=== PATIENT | female | born 1985 | race Caucasian/White ===

== ENCOUNTER 2023-07-08 17:22 | Emergency (ER) | payer OTHER, SELFPAY ==
[2023-07-08 17:32] VITALS: BP 132/89
[2023-07-08 17:52] LABS: % Basophils 0.6 % (0-2); % Immature Granulocytes 0.2 % (0-0.5); % Lymphocytes 32.3 % (20.5-51.1); % Monocytes 7.5 % (1.7-9.3); % Neutrophils 53.4 % (42.2-75.2); Absolute Basophils 0.1 10^3/uL (0-0.2); Absolute Eosinophils 0.5 10^3/uL (0-0.7); Absolute Lymphocytes 2.6 10^3/uL (1.2-3.4); Absolute Monocytes 0.6 10^3/uL (0.1-0.6); Absolute Neutrophils 4.3 10^3/uL (1.4-6.5); Hematocrit 36.9 % (37.0-47.0); Hemoglobin 12.4 g/dL (12.0-16.0); Mean Corp Hgb Conc. 33.6 g/dL (33.0-37.0); Mean Corpuscular Hgb 29.5 pg (27.0-31.0); Mean Corpuscular Volume 87.6 fL (81.0-99.0); Mean Platelet Volume 9.5 fL (7.4-10.4); Nucleated Red Blood Cells % 0 %; Platelet Count 293 10^3/uL (130-400); Red Blood Cell Count 4.21 10^6/uL (4.20-5.40); Red Cell Dist. Width 12.6 % (11.5-14.5); White Blood Cell Count 8.1 10^3/uL (4.8-10.8)
[2023-07-08 18:00] VITALS: BP 127/97
[2023-07-08 18:03] VITALS: BP 136/102
[2023-07-08 18:04] LABS: ALT (SGPT) 19 U/L (0-35); AST (SGOT) 21 U/L (14-36); Albumin 4.4 g/dl (3.5-5.0); Alkaline Phosphatase 82 U/L (38-126); Blood Urea Nitrogen 15 mg/dl (7-17); Calcium 9.6 mg/dl (8.4-10.2); Carbon Dioxide 25 mmol/L (22-30); Chloride 103 mmol/L (98-107); Glucose 92 mg/dl (70-99); Sodium 137 mmol/L (135-145); Total Bilirubin 0.3 mg/dl (0.2-1.3); Total Protein 7.8 g/dl (6.3-8.2); eGFR > 60.00
[2023-07-08 18:05] LABS: Potassium 3.8 mmol/L (3.5-5.1)
[2023-07-08 18:15] LABS: Troponin I < 0.012 ng/ml
--- NOTE | 2023-07-08 18:15 | ED.GENMED ---
History of Present Illness
General
Chief Complaint: Breathing Problem
Source: patient
Exam Limitations: none
Time Seen by Provider: 07/08/23 18:04
Travel History
Have you had any contact with someone who has COVID-19?: No
Do you have any symptoms of coronavirus? Fever > 100 degrees, chills, cough, shortness of breath, sore throat, loss of taste or smell, muscle aches, or headache?: No
History of Present Illness
History of Present Illness:
This is a 37 year old female that comes in with c/o chest pain, SOB and left arm pain. States that all of a sudden she started with pain in the left shoulder that went into the upper arm and she started to cough. States that she had chest tightness
and had trouble breathing. states that she still feels like she has tightness in her throat. States that she has been on antibiotics for bacteria stomach overgrowth. States that she did get lightheaded when she stood up. Denies any fever, chills,
abd pain, nausea, vomiting, diarrhea, headache, urinary burning.
Past History
Past History
ED Past Medical History: Asthma (Exercise induced) and Other (Celiac disease, IgA deficiency, )
ED Past Surgical History: None and Other (Left retina surgery)
Social History
Tobacco: Non-smoker
Alcohol: None
Drug: None
Personal:
Living: with family
Employment: Employed
Review of Systems
Review of Systems
All Other Systems: ROS reviewed and negative except as documented in HPI and ROS
Constitutional: Reports no symptoms; Denies fever or chills
EENT: Reports other (Tightness in her throat)
Respiratory: Reports cough and trouble breathing
Cardiac: Reports chest pain
ABD/GI: Reports no symptoms; Denies abdominal pain, nausea, vomiting or diarrhea
: Reports no symptoms; Denies dysuria, frequency or urgency
Musculoskeletal: Reports no symptoms
Neurological: Reports dizzy (with standing lightheaded); Denies headache
Psychiatric: Reports no symptoms
Phy Exam
General Physical Exam
General Presentation: well appearing and no apparent distress
General age: appears stated age
General Skin: warm and dry
General Habitus: normal
General Mental: alert
General Hydration: dry mucous membranes
ENT Exam
ENT Exam: TM's normal, pharynx normal and neck supple
Eye Exam
Eye Exam: EOMI
Cardiovascular Exam
Cardiovascular Exam: no edema, no murmur, normal peripheral pulses and tachycardia
Pulmonary Exam
Pulmonary Exam: lungs clear, no respiratory distress, no rales, chest non tender, no crackles, no rhonchi, no wheezing and no cough (at this time)
Gastrointestinal Exam
Gastrointestinal Exam: normal bowel sounds, non tender, soft, no organomegaly, no pulsatile mass and non distended
Musculoskeletal Exam
Musculoskeletal Exam: full ROM, no edema and other (Tenderness to palpation left trapezius muscle into shoulder, Full ROM with normal peripheral pulses)
Skin Exam
Skin Exam: normal color, warm/dry, no rash and no petechia
Psychiatric Exam
Psychiatric Exam: normal mood/affect
Course
Orders/Labs/Results
Orders:
Orders
07/08/23 17:31
Electrocardiogram (*1) Urgent
Reason for Study: Chest Pain
EKG- Treatment ONCE
07/08/23 17:38
Complete Blood Count/With Diff Urgent
Comprehensive Metabolic Panel Urgent
HCG, Serum Qualitative Screen Urgent
Troponin I Urgent
07/08/23 18:14
Add On- LAB Urgent
Tests Added?: HCG
Ketorolac [Toradol] 30 mg IV NOW STA
07/08/23 19:02
D-Dimer Urgent
07/08/23 20:31
Troponin I Urgent
07/08/23 21:03
CR Chest - 2 Views Urgent
Comment:
Reason For Exam: Chest pain
Abnormal Lab Results
07/08/23
17:38
Hct 36.9 L %
(37.0-47.0)
07/08/23 17:38
07/08/23 17:38
Labs unremarkable. Troponin <0.012
Second Troponin <0.012, D-dimer 0.28, HCG negative.
Vital Signs
Initial and Last Documented VS:
Initial Vital Signs
Temp Pulse Resp Pulse Ox
98.1 F 108 24 100
07/08/23 17:29 07/08/23 17:29 07/08/23 17:29 07/08/23 17:29
Last Documented Vital Signs
Temp Pulse Resp BP Pulse Ox
98.1 F 88 21 115/78 97
07/08/23 17:29 07/08/23 21:15 07/08/23 21:15 07/08/23 21:00 07/08/23 21:15
MDM/Problems Addressed
Differential Diagnosis Includes:
PE, MA, PNA
MDM/Problems Addressed:
This is a 37 year old female that comes in with c/o left shoulder into chest pain. Stats that this came on suddenly. States that she started to cough with the pain and she was not sick. States that the coughing has stopped. States that she still has
tightness in her throat.
Will check labs. If D-dimer is positive will get CT of chest.
Back into see patient. patient state that she is feeling better after the medication for pain. Explained that this sounds musculoskeletal in nature. Her blood work is all normal along with her chest x-ray. Patient can take Ibuprofen 600mg every 6
hours with food for pain. Follow up with the family doctor. Return with any concerns.
Chronic conditions affecting care:
NA
Acute Exacerbation and/or Progression of Chronic Illness:
NA
*Radiology
Radiology exam reviewed: preliminary read by ED provider (Chest- Negative for active disease. )
*Pulse Oximetry
Patient hypoxic: no
*EKG
Interpreted by ED Provider?: Yes
Heart Rate: 100
Rate: tachycardiac
Rhythm: sinus
[place]: normal axis
Interval: normal interval
QRS Pattern: normal QRS
Ischemia: no ischemia (Checked by Dr. Caicedo)
*[employer] Interpretation
Rate: tachycardiac
Heart Rate: 101
Rhythm: sinus tachycardia
*Critical Care Note
Total Time (30-74mins, 75-104mins- exclusive of procedures): Not Applicable
ED Attending Note
-
Portions of this chart may have been created with voice recognition software.� Occasional wrong word or��sound alike� substitutions may have occurred due to the inherent limitations of voice recognition software.
Discharge Plan
Departure
Patient Disposition: Home (Routine Discharge)
Date of Disposition: 07/08/23
Time of Disposition: 21:41
Patient with high blood pressure during this ER visit?: No
Condition: Good
Covid-19: Not Applicable
Discharge Problem:
Musculoskeletal pain
Instructions: Musculoskeletal Pain
Prescriptions:
No Action
omeprazole 20 MG capsule,delayed release(DR/EC)
20 mg PO DAILY
cimetidine 300 MG tablet
300 mg PO DAILY
beclomethasone dipropionate [QNASL] 10.6 GM HFA aerosol inhaler
10.6 gm NS DAILY
[id number] acd 1 EACH tablet
1 mg PO TID
acetaminophen 325 MG tablet
650 mg PO Q4HPRN PRN (Reason: mild pain) Qty: 0 0RF
sennosides-docusate sodium 1 TABLET tablet
1 tab PO DAILYPRN PRN (Reason: constipation) Qty: 30 0RF
ibuprofen 600 MG tablet
600 mg PO Q6HPRN PRN (Reason: moderate pain/cramps) Qty: 60 0RF
Referrals:
Spoonhower,Nohemy, PA [Family Provider] - Call in 1-3 days for appt
Activity Restrictions/Additional Instructions:
As discussed, your blood work is all normal along with your chest x-ray. Please follow up with the family doctor for recheck. This appears to be more musculoskeletal in nature. You may use Ibuprofen 600mg every 6 hours for pain with food. IF YOU
HAVE INCREASED OR CHANGING PAIN, OR YOU HAVE ANY OTHER CONCERNS PLEASE RETURN TO THE EMERGENCY ROOM.
Interventions
Interventions:
*Risk Screen - Suicide Last Done: 07/08/23 17:29
*General Assessment Last Done: 07/08/23 17:29
*Neglect/Abuse Screening Last Done: 07/08/23 17:29
ED- Fall Risk Assessment Last Done: 07/08/23 18:15
ED- Cardiac Assessment Last Done: 07/08/23 18:15
ED- Pulmonary Assessment Last Done: 07/08/23 18:15
Discharge Date and Time
Print Language: MACEDONIAN
[2023-07-08 18:41] LABS: HCG, Serum Qualitative Screen Negative
[2023-07-08] MEDS: TORADOL 30 MG IV (18:49)
[2023-07-08 19:21] LABS: D-Dimer 0.28 ug/mlFEU (0.00-0.50)
[2023-07-08 20:00] VITALS: BP 100/86
[2023-07-08 21:00] VITALS: BP 115/78
[2023-07-08 21:01] LABS: Troponin I < 0.012 ng/ml
[2023-07-08 21:40] VITALS: BP 121/69
== END 2023-07-08 21:51 | disposition home or self-care (01) ==
LOC: EMR 17:22
PROVIDERS: Clinical Nurse Specialist Family Health; Emergency Medicine; EMERGENCY PHYSICIAN Emergency Medicine; FAMILY PHYSICIAN Physician Assistant
DX: M79.18 Myalgia, other site (principal)
CPT/HCPCS: 99285; 96374; 71046; 80053; 84484; 84703; 85025; 85379; 93005

== ENCOUNTER → 2023-07-22 17:08 | Outpatient (REF) | payer OTHER, SELFPAY | LOC: WDC 17:08 | PROVIDERS: ATTENDING PHYSICIAN Surgery | DX: R92.8 Other abnormal and inconclusive findings on diagnostic imaging of breast (principal) | CPT/HCPCS: 77062; 77066 ==